=== PATIENT | female | born 1960 | race African-American/Black ===

== ENCOUNTER 2017-07-28 13:09 | Inpatient (IN) | payer OTHER ==
--- NOTE | 2017-07-28 13:27 | PDOC ---
History of Present Illness - General Chief Complaint: Pain Stated Complaint: Abd pain Time Seen by Provider: 07/28/17 13:27 - History of Present Illness Initial Comments: 07/28/17 13:46 Ms. Ramirez is a 56 yo female w/ pmh of HTN, cholelithiasis, and fibroids who presents for evaluation of a several hour history of LUQ pain with nausea (no vomiting). She reports this started at approximately 9am this morning and feels different from her normal gall bladder pain. She has passed gas and had a normal bowel movement since this started. The patient denies chest pain, shortness of breath, headache and dizziness. Denies fever, chills, vomit, diarrhea and constipation. Denies dysuria, frequency, urgency and hematuria. Allergies: NKDA Past History - Past Medical History Allergies/Adverse Reactions: Allergies Allergy/AdvReac Type Severity Reaction Status Date / Time No Known Allergies Allergy Verified 07/28/17 13:10 Home Medications: Ambulatory Orders NK [No Known Home Medication] 07/28/17 COPD: No DVT: No HTN: Yes - Suicide/Smoking/Psychosocial Hx Smoking Status: No Smoking History: Never smoked Have you smoked in the past 12 months: No Number of Cigarettes Smoked Daily: 0 Information on smoking cessation initiated: No Hx Alcohol Use: No Drug/Substance Use Hx: No Substance Use Type: None Review of Systems - Review of Systems Comments:: 07/28/17 14:12 GENERAL/CONSTITUTIONAL: No fever or chills. No weakness. HEAD, EYES, EARS, NOSE AND THROAT: No change in vision. No ear pain or discharge. No sore throat. CARDIOVASCULAR: No chest pain or shortness of breath RESPIRATORY: No cough, wheezing, or hemoptysis. GASTROINTESTINAL: Nausea without vomiting, diarrhea or constipation. GENITOURINARY: No dysuria, frequency, or change in urination. MUSCULOSKELETAL: No joint or muscle swelling or pain. No neck or back pain. SKIN: No rash NEUROLOGIC: No headache, vertigo, loss of consciousness, or change in strength/ sensation. ENDOCRINE: No increased thirst. No abnormal weight change HEMATOLOGIC/LYMPHATIC: No anemia, easy bleeding, or history of blood clots. ALLERGIC/IMMUNOLOGIC: No hives or skin allergy. *Physical Exam - Vital Signs Last Vital Signs Temp Pulse Resp BP Pulse Ox 98.3 F 96 H 18 150/87 100 07/28/17 13:11 07/28/17 13:11 07/28/17 13:11 07/28/17 13:11 07/28/17 13:11 - Physical Exam Comments: 07/28/17 14:14 GENERAL: Awake, alert, and fully oriented, in no acute distress HEAD: No signs of trauma, normocephalic, atraumatic EYES: PERRLA, EOMI, sclera anicteric, conjunctiva clear ENT: Auricles normal inspection, hearing grossly normal, nares patent, oropharynx clear without exudates. Moist mucosa NECK: Normal ROM, supple, no lymphadenopathy, JVD, or masses LUNGS: No distress, speaks full sentences, clear to auscultation bilaterally HEART: Regular rate and rhythm, normal S1 and S2, no murmurs, rubs or gallops, peripheral pulses normal and equal bilaterally. ABDOMEN: +LUQ TTP. Soft, normoactive bowel sounds. No guarding, no rebound. No masses EXTREMITIES: Normal inspection, Normal range of motion, no edema. No clubbing or cyanosis. NEUROLOGICAL: Cranial nerves II through XII grossly intact. Normal speech, normal gait, no focal sensorimotor deficits SKIN: Warm, Dry, normal turgor, no rashes or lesions noted. ED Treatment Course - LABORATORY CBC & Chemistry Diagram: 07/28/17 14:09 07/28/17 14:09 Medical Decision Making - Medical Decision Making 07/28/17 14:23 Ms. Ramirez is a 56 yo female w/ pmh as described who presents for evaluation of LUQ pain. XR ordered to r/o SBO, basic labs + lipase ordered for further evaluation. Fluids + pepcid + tylenol ordered for symptomatic relief. 07/28/17 17:47 CT abdomen negative for acute process however noted enlarged uterus, cholelithiasis, and colonic diverticulosis. Patient reporting some relief from symptoms. Labs significant for elevated white count as below. GI cocktail given for symptomatic relief. Patient dispo pending resolution of pain. 07/28/17 18:46 Patient continuing to have abdominal pain. US ordered for further evaluation. 07/28/17 18:48 Patient signed out to Dr. Ely for further evaluation. *DC/Admit/Observation/Transfer Diagnosis at time of Disposition: Diverticulitis - Discharge Dispostion Decision to Admit order: Yes - Referrals - Patient Instructions - Post Discharge Activity
[2017-07-28] MEDS ORDERED: SODIUM CHLORIDE 1,000 ML IV STA (13:50)
[2017-07-28] MEDS ORDERED: ONDANSETRON 4 MG/2 ML VIAL IVPUSH ONE (13:50)
[2017-07-28] MEDS ORDERED: FAMOTIDINE 20 MG/50 ML IVPB 20 MG/50 ML MG IVPB ONE ×4 (13:50→17:49)
[2017-07-28] MEDS ORDERED: ACETAMINOPHEN 1000 MG/100 ML VIAL (NON FORMULARY) IVPB ONE (13:50)
[2017-07-28] MEDS ORDERED: ACETAMINOPHEN INJECTION 100 ML IVPB ONE (13:56)
[2017-07-28] MEDS ORDERED: ONDANSETRON 4 MG/2 ML VIAL ONE (13:57)
--- NOTE | 2017-07-28 14:00 | PDOC ---
Attending Attestation - HPI HPI: 07/28/17 14:29 The patient is a 56-year-old female, with a significant past medical history of HTN, cholelithiasis, and fibroids, who presents to the ED with left-sided abdominal pain that began this morning at 10:30AM. She describes the pain as constant, pressure-like in sensation, 8/10 initially, with no radiation. She reports associated nausea but denies any vomiting. Patient states that her belly feels "hard" but she unable to pass any gas. She denies any hematuria or back pain. The patient denies any fever, chills, or diarrhea. She denies any chest pain, palpitations, or shortness of breath. - Physicial Exam PE: 07/28/17 14:33 GENERAL: The patient is in no acute distress. HEAD: Normal with no signs of trauma. EYES: PERRLA, EOMI, sclera anicteric, conjunctiva clear. ENT: Ears normal, nares patent, oropharynx clear without exudates. Moist mucous membranes. NECK: Normal range of motion, supple without lymphadenopathy, JVD, or masses. LUNGS: Breath sounds equal, clear to auscultation bilaterally. No wheezes, and no crackles. HEART:Regular rate and rhythm, normal S1 and S2 without murmur, rub or gallop. ABDOMEN: (+)Left-sided tenderness to palpation. Soft, normoactive bowel sounds. No guarding, no rebound. EXTREMITIES: Normal range of motion, no edema. No clubbing or cyanosis. No erythema, or tenderness. NEUROLOGICAL: Cranial nerves II through XII grossly intact. Normal speech. No focal neurological deficits. MUSCULOSKELETAL: Back non-tender to palpation, no CVA tenderness SKIN: Warm, Dry, normal turgor, no rashes or lesions noted. <Hailey Enriquez - Last Filed: 07/28/17 14:29> - Resident Resident Name: Clarence Yousif - ED Attending Attestation I have performed the following: I have examined & evaluated the patient, The case was reviewed & discussed with the resident, I agree w/resident's findings & plan, Exceptions are as noted - Medical Decision Making 07/28/17 14:48 EKG: Sinus rhythm, rate of 97 bpm, axis is normal, intervals are normal, no ST elevations or depressions, T waves upright This is a 56-year-old female who presents emergency Department with abdominal pain. Symptoms began suddenly the possibly 10 or 10:30 AM. Described as sharp/pressing, initially pain was 9-10/10, no prior episodes like this. Upon my assessment, patient had only "given Tylenol and states that her pain had improved but has not gone away. No abdominal distention, no fever, no chills. Patient had 2 bowel movements which did not improve her symptoms. Patient has not passed any flatus. Patient has a prior surgical history of a . Examination: Patient is awake, alert, answers all questions. Heart is regular Lungs are clear to auscultation Abdomen is large, protuberant, tender in the left upper quadrant, no involuntary guarding, no rebound. No lower abdominal tenderness to palpation Pt CT pending Consider US if CT negative Pt signed out to overnight attending <Roya Chen - Last Filed: 07/30/17 08:09> Attestations - Attestations 07/28/17 14:35 Documentation prepared by Hailey Enriquez, acting as biomedical repair technician for Roya Chen MD. <Hailey Enriquez - Last Filed: 07/28/17 14:29>
[2017-07-28 14:14] LABS: BASO % 0.5 % (0-2.0); EOS % 0.9 % (0-4.5); HEMATOCRIT 44.4 % (32.4-45.2); HEMOGLOBIN 14.7 GM/dL (10.7-15.3); MCH 30.3 pg (25.7-33.7); MCHC 33.1 g/dl (32.0-36.0); MEAN CELL VOLUME 91.5 fl (80-96); NEUT % 83.6 % (42.8-82.8); PLATELET COUNT 269 K/MM3 (134-434); RBC 4.86 M/mm3 (3.60-5.2); RDW 13.4 % (11.6-15.6); URINE APPEARANCE CLEAR; URINE BILIRUBIN NEGATIVE (<2.0 mg/dL); URINE BLOOD NEGATIVE (NEGATIVE); URINE COLOR STRAW; URINE GLUCOSE (UA) NEGATIVE (NEGATIVE); URINE KETONE NEGATIVE (NEGATIVE); URINE LEUK ESTERASE NEGATIVE (NEGATIVE); URINE NITRITE NEGATIVE (NEGATIVE); URINE PROTEIN NEGATIVE (NEGATIVE); URINE UROBILINOGEN NEGATIVE mg/dL (0.2-1.0); WHITE BLOOD COUNT 14.2 K/mm3 (4.0-10.0)
[2017-07-28 14:44] LABS: ALBUMIN 4.1 g/dl (3.4-5.0); ANION GAP 9 (8-16); BLOOD UREA NITROGEN 9 mg/dL (7-18); CALCIUM 9.1 mg/dL (8.5-10.1); CHLORIDE 104 mmol/L (98-107); CO2 25 mmol/L (21-32); CREATININE 0.8 mg/dL (0.55-1.02); GLUCOSE,RANDOM 142 mg/dL (74-106); LIPASE 110 U/L (73-393); POTASSIUM 3.9 mmol/L (3.5-5.1); SGOT/AST 26 U/L (15-37); SGPT/ALT 53 U/L (12-78); SODIUM 138 mmol/L (136-145)
[2017-07-28 14:45] LABS: ALK PHOS 90 U/L (45-117); TOT PROT 7.7 g/dl (6.4-8.2)
[2017-07-28] MEDS ORDERED: LIDOCAINE VISCOUS 2% ORAL/TOP 20 ML UNIT-DOSE CUP MM ONE (17:46)
[2017-07-28] MEDS ORDERED: MAG HYDROX/AL HYDROX/SIMETH 30 ML UNIT-DOSE CUP PO ONE (17:46)
[2017-07-28] MEDS ORDERED: LIDOCAINE VISCOUS 2% ORAL/TOP 20 ML UNIT-DOSE CUP ONE (17:48)
[2017-07-28] MEDS ORDERED: MAG HYDROX/AL HYDROX/SIMETH 30 ML UNIT-DOSE CUP ONE (17:49)
[2017-07-28] MEDS ORDERED: morphine CARPU-JECT 2 MG/1 ML DISP.SYRIN IVPUSH ONE (18:47)
[2017-07-28] MEDS ORDERED: morphine CARPU-JECT 2 MG/1 ML DISP.SYRIN ONE (18:52)
--- NOTE | 2017-07-28 21:06 | PDOC ---
History of Present Illness - General Chief Complaint: Pain Stated Complaint: Abd pain Time Seen by Provider: 07/28/17 13:27 Past History - Past Medical History Allergies/Adverse Reactions: Allergies Allergy/AdvReac Type Severity Reaction Status Date / Time No Known Allergies Allergy Verified 07/28/17 13:10 Home Medications: Ambulatory Orders NK [No Known Home Medication] 07/28/17 COPD: No DVT: No HTN: Yes - Suicide/Smoking/Psychosocial Hx Smoking Status: No Smoking History: Never smoked Have you smoked in the past 12 months: No Number of Cigarettes Smoked Daily: 0 Information on smoking cessation initiated: No Hx Alcohol Use: No Drug/Substance Use Hx: No Substance Use Type: None *Physical Exam - Vital Signs Last Vital Signs Temp Pulse Resp BP Pulse Ox 98.3 F 86 18 119/68 100 07/28/17 13:11 07/28/17 16:03 07/28/17 16:03 07/28/17 16:03 07/28/17 16:03 ED Treatment Course - LABORATORY CBC & Chemistry Diagram: 07/28/17 14:09 07/28/17 14:09 - ADDITIONAL ORDERS Additional order review: Laboratory Results 07/28/17 07/28/17 14:09 14:09 Sodium 138 Potassium 3.9 Chloride 104 Carbon Dioxide 25 Anion Gap 9 BUN 9 Creatinine 0.8 Creat Clearance w eGFR > 60 Random Glucose 142 H Calcium 9.1 Total Bilirubin 1.0 D AST 26 ALT 53 Alkaline Phosphatase 90 Total Protein 7.7 Albumin 4.1 Lipase 110 Urine Color Straw Urine Appearance Clear Urine pH 9.0 H D Ur Specific [place] 1.012 Urine Protein Negative Urine Glucose (UA) Negative Urine Ketones Negative Urine Blood Negative Urine Nitrite Negative Urine Bilirubin Negative Urine Urobilinogen Negative Ur Leukocyte Esterase Negative 07/28/17 14:09 RBC 4.86 MCV 91.5 MCHC 33.1 RDW 13.4 MPV 9.0 Neutrophils % 83.6 H D Lymphocytes % 8.0 D Monocytes % 7.0 D Eosinophils % 0.9 D Basophils % 0.5 - Medications Given in the ED: ED Medications Discontinued Medications Generic Name Dose Route Start Last Admin Trade Name Freq PRN Reason Stop Dose Admin Acetaminophen 1,000 mg 07/28/17 13:50 07/28/17 14:09 Ofirmev Injection - IVPB 07/28/17 13:51 1,000 mg ONCE ONE Administration Al Hydroxide/Mg Hydroxide 30 ml 07/28/17 17:46 07/28/17 17:59 Mylanta Oral Suspension - PO 07/28/17 17:47 30 ml ONCE ONE Administration Famotidine/Sodium Chloride 20 mg in 50 mls @ 100 mls/hr 07/28/17 13:50 14:03 Pepcid 20 Mg Premixed Ivpb - IVPB 07/28/17 14:19 100 mls/hr ONCE ONE Administration Sodium Chloride 1,000 mls @ 1,000 mls/hr 07/28/17 13:50 07/28/17 14:03 Normal Saline - IV 07/28/17 14:49 1,000 mls/hr ASDIR STA Administration Famotidine/Sodium Chloride 20 mg in 50 mls @ 100 mls/hr 07/28/17 17:46 17:58 Pepcid 20 Mg Premixed Ivpb - IVPB 07/28/17 18:15 100 mls/hr ONCE ONE Administration Lidocaine HCl 20 ml 07/28/17 17:46 07/28/17 17:58 Xylocaine 2% Viscous Oral - MM 07/28/17 17:47 20 ml ONCE ONE Administration Morphine Sulfate 2 mg 07/28/17 18:47 07/28/17 19:00 Morphine Injection - IVPUSH 07/28/17 18:48 2 mg ONCE ONE Administration Ondansetron HCl 4 mg 07/28/17 13:50 07/28/17 14:03 Zofran Injection IVPUSH 07/28/17 13:51 4 mg ONCE ONE Administration *DC/Admit/Observation/Transfer Diagnosis at time of Disposition: Diverticulitis - Discharge Dispostion Decision to Admit order: Yes - Referrals - Patient Instructions - Post Discharge Activity
[2017-07-28] MEDS ORDERED: morphine SULFATE 4 MG/ML VIAL IVPUSH PRN (21:39)
--- NOTE | 2017-07-28 21:44 | HP ---
Admitting History and Physical - Primary Care Physician PCP: Kiel Cohen - Admission Chief Complaint: abdominal pain History of Present Illness: 56-year-old female, with a significant past medical history of HTN, cholelithiasis, and fibroids, who presents to the ED with left-sided abdominal pain that began this morning at 10:30AM. She describes the pain as constant, pressure-like in sensation, 8/10 initially, with no radiation. She reports associated nausea but denies any vomiting. Patient states that her belly feels "hard" but she unable to pass any gas. She denies any hematuria or back pain. - Past Medical History Cardiovascular: Yes: HTN, Hyperlipdemia - Smoking History Smoking history: Never smoked Have you smoked in the past 12 months: No Aproximately how many cigarettes per day: 0 - Alcohol/Substance Use Hx Alcohol Use: No Home Medications - Allergies Allergies/Adverse Reactions: Allergies Allergy/AdvReac Type Severity Reaction Status Date / Time No Known Allergies Allergy Verified 07/28/17 13:10 - Home Medications Home Medications: Ambulatory Orders NK [No Known Home Medication] 07/28/17 Physical Examination Vital Signs: Vital Signs Temperature 99.2 F 07/28/17 21:06 Pulse Rate 88 07/28/17 21:06 Respiratory Rate 17 07/28/17 21:06 Blood Pressure 119/65 07/28/17 21:06 O2 Sat by Pulse Oximetry (%) 98 07/28/17 21:06 Constitutional: Yes: No Distress HENT: Yes: Atraumatic Neck: Yes: Supple Cardiovascular: Yes: Regular Rate and Rhythm Respiratory: Yes: CTA Bilaterally Gastrointestinal: Yes: Normal Bowel Sounds, Tenderness (luq) Extremities: Yes: WNL Neurological: Yes: Alert, Oriented Labs: CBC, BMP 07/28/17 14:09 07/28/17 14:09 Problem List - Problems (1) Diverticulitis Assessment/Plan: npo ivf, iv abx gi and id consult Code(s): K57.92 - DVTRCLI OF INTEST, PART UNSP, W/O PERF OR ABSCESS W/O BLEED Assessment/Plan Laboratory Tests 07/28/17 07/28/17 07/28/17 14:09 14:09 14:09 WBC 14.2 H RBC 4.86 Hgb 14.7 Hct 44.4 MCV 91.5 MCH 30.3 MCHC 33.1 RDW 13.4 Plt Count 269 MPV 9.0 Absolute Neuts (auto) 11.9 Neutrophils % 83.6 H D Lymphocytes % 8.0 D Monocytes % 7.0 D Eosinophils % 0.9 D Basophils % 0.5 Nucleated RBC % 0 Sodium 138 Potassium 3.9 Chloride 104 Carbon Dioxide 25 Anion Gap 9 BUN 9 Creatinine 0.8 Creat Clearance w eGFR > 60 Random Glucose 142 H Calcium 9.1 Total Bilirubin 1.0 D AST 26 ALT 53 Alkaline Phosphatase 90 Total Protein 7.7 Albumin 4.1 Lipase 110 Urine Color Straw Urine Appearance Clear Urine pH 9.0 H D Ur Specific [place] 1.012 Urine Protein Negative Urine Glucose (UA) Negative Urine Ketones Negative Urine Blood Negative Urine Nitrite Negative Urine Bilirubin Negative Urine Urobilinogen Negative Ur Leukocyte Esterase Negative Active Medications Generic Name Dose Route Start Last Admin Trade Name Freq PRN Reason Stop Dose Admin Metronidazole 500 mg in 100 mls @ 100 mls/hr 07/28/17 20:59 07/28/17 21:06 Flagyl 500mg Premixed Ivpb - IVPB 07/28/17 21:58 100 mls/hr ONCE ONE Administration Levofloxacin 500 mg in 100 mls @ 100 mls/hr 07/28/17 20:59 Levaquin 500 Mg Premixed Ivpb - IVPB 07/28/17 21:58 ONCE ONE Protocol Metronidazole 500 mg in 100 mls @ 100 mls/hr 07/29/17 02:00 Flagyl 500mg Premixed Ivpb - IVPB Q8H-IV MAGDALENO Levofloxacin 500 mg in 100 mls @ 100 mls/hr 07/29/17 10:00 Levaquin 500 Mg Premixed Ivpb - IVPB 08/03/17 09:59 DAILY MAGDALENO Protocol Sodium Chloride 1,000 mls @ 100 mls/hr 07/28/17 21:45 Normal Saline - IV ASDIR MAGDALENO Morphine Sulfate 2 mg 07/28/17 21:39 Morphine Sulfate IVPUSH Q4H PRN PAIN LEVEL 4 - 6 Pantoprazole Sodium 40 mg 07/29/17 10:00 Protonix Iv IVPUSH DAILY MAGDALENO
[2017-07-28] MEDS: SODIUM CHLORIDE 1,000 ML IV SCH (21:57)
[2017-07-29 01:14] VITALS: BMI 41.2
[2017-07-29] MEDS: SODIUM CHLORIDE 1,000 ML IV SCH ×2 (01:34→10:47)
[2017-07-29 07:42] LABS: BASO % 0.6 % (0-2.0); EOS % 0.5 % (0-4.5); HEMATOCRIT 38.6 % (32.4-45.2); LYMPH % 13.5 % (8-40); MCH 31.1 pg (25.7-33.7); MCHC 33.6 g/dl (32.0-36.0); MEAN CELL VOLUME 92.6 fl (80-96); MEAN PLT VOLUME 8.7 fl (7.5-11.1); MONO % 6.9 % (3.8-10.2); NEUT % 78.5 % (42.8-82.8); PLATELET COUNT 226 K/MM3 (134-434); RBC 4.16 M/mm3 (3.60-5.2); RDW 13.3 % (11.6-15.6); WHITE BLOOD COUNT 11.3 K/mm3 (4.0-10.0)
[2017-07-29 08:07] LABS: CHLORIDE 107 mmol/L (98-107); POTASSIUM 3.7 mmol/L (3.5-5.1); SODIUM 142 mmol/L (136-145)
[2017-07-29 08:14] LABS: ALBUMIN 3.3 g/dl (3.4-5.0); ALK PHOS 68 U/L (45-117); ANION GAP 9 (8-16); BILIRUBIN,TOTAL 1.2 mg/dL (0.2-1.0); BLOOD UREA NITROGEN 9 mg/dL (7-18); CALCIUM 8.4 mg/dL (8.5-10.1); CO2 26 mmol/L (21-32); CREATININE 0.8 mg/dL (0.55-1.02); GLUCOSE,RANDOM 104 mg/dL (74-106); SGOT/AST 19 U/L (15-37); SGPT/ALT 40 U/L (12-78); TOT PROT 6.3 g/dl (6.4-8.2)
[2017-07-29] MEDS: PANTOPRAZOLE SODIUM 40 MG VIAL IVPUSH SCH (09:28)
--- NOTE | 2017-07-29 12:14 | CON.GI ---
Consult Consult Specialty:: GI Reason for Consultation:: abdominal pain of 1 day duration - History of Present Illness History of Present Illness: chart reviewed. Events noted. As per initial intake: The patient is a 56-year -old female, with a significant past medical history of HTN, cholelithiasis, and fibroids, who presents to the ED with left-sided abdominal pain that began this morning at 10:30AM. She describes the pain as constant, pressure-like in sensation, 8/10 initially, with no radiation. She reports associated nausea but denies any vomiting. Patient states that her belly feels "hard" but she unable to pass any gas. She denies any hematuria or back pain. She was noted to have mild leukocytosis, normal liver chemistry and hemoglobin on admission. Minimal increase in total bili on today's labs. Ultrasound of the abdomen revealed cholelithiasis without signs of inflammation. CAT scan of the abdomen revealed diverticulosis, cholelithiasis and fatty liver. At the time of this encounter, the patient appears comfortable. Reports left lower quadrant pain that brought her to the ED has resolved. She corroborates the above history All for acute onset left lower quadrant abdominal pain with chills and nausea without vomiting, diarrhea, skin rashes, joint pains. No prior episodes of the same. No ill household contacts, eating out, recent travel. Took short course of antibiotics 2 months ago. Never had screening colonoscopy. - History Source History Provided By: Patient, Medical Record - Past Medical History Cardio/Vascular: Yes: HTN, Hyperlipdemia ...: No - Alcohol/Substance Use Hx Alcohol Use: No - Smoking History Smoking history: Never smoked Have you smoked in the past 12 months: No Aproximately how many cigarettes per day: 0 Home Medications - Allergies Allergies/Adverse Reactions: Allergies Allergy/AdvReac Type Severity Reaction Status Date / Time No Known Allergies Allergy Verified 07/28/17 13:10 - Home Medications Home Medications: Ambulatory Orders NK [No Known Home Medication] 07/28/17 Family Disease History - Family Disease History Family History: Unremarkable Review of Systems Findings/Remarks: As per H&P, HPI and ED records. Physical Exam-GI Vital Signs: Vital Signs Temperature 98.2 F 07/29/17 09:40 Pulse Rate 76 07/29/17 09:40 Respiratory Rate 20 07/29/17 09:40 Blood Pressure 116/62 07/29/17 09:40 O2 Sat by Pulse Oximetry (%) 95 07/29/17 09:00 Constitutional: Yes: Well Nourished, No Distress, Calm Eyes: Yes: Conjunctiva Clear HENT: Yes: Atraumatic Neck: Yes: Supple Cardiovascular: Yes: Regular Rate and Rhythm Respiratory: Yes: Regular Gastrointestinal Inspection: No: Ascites, Distention ...Auscultate: Yes: Normoactive Bowel Sounds ...Palpate: No: Firm/Rigid, Guarding, Tenderness, Rebound Neurological: Yes: Alert, Oriented Labs: CBC, BMP 07/29/17 06:00 07/29/17 06:00 Laboratory Last Values WBC 11.3 K/mm3 (4.0-10.0) H 07/29/17 06:00 RBC 4.16 M/mm3 (3.60-5.2) 07/29/17 06:00 Hgb 13.0 GM/dL (10.7-15.3) D 07/29/17 06:00 Hct 38.6 % (32.4-45.2) 07/29/17 06:00 MCV 92.6 fl (80-96) 07/29/17 06:00 MCH 31.1 pg (25.7-33.7) 07/29/17 06:00 MCHC 33.6 g/dl (32.0-36.0) 07/29/17 06:00 RDW 13.3 % (11.6-15.6) 07/29/17 06:00 Plt Count 226 K/MM3 (134-434) 07/29/17 06:00 MPV 8.7 fl (7.5-11.1) 07/29/17 06:00 Absolute Neuts (auto) 8.9 # 07/29/17 06:00 Neutrophils % 78.5 % (42.8-82.8) 07/29/17 06:00 Lymphocytes % 13.5 % (8-40) D 07/29/17 06:00 Monocytes % 6.9 % (3.8-10.2) 07/29/17 06:00 Eosinophils % 0.5 % (0-4.5) 07/29/17 06:00 Basophils % 0.6 % (0-2.0) 07/29/17 06:00 Nucleated RBC % 0 % (0-0) 07/29/17 06:00 Sodium 142 mmol/L (136-145) 07/29/17 06:00 Potassium 3.7 mmol/L (3.5-5.1) 07/29/17 06:00 Chloride 107 mmol/L (98-107) 07/29/17 06:00 Carbon Dioxide 26 mmol/L (21-32) 07/29/17 06:00 Anion Gap 9 (8-16) 07/29/17 06:00 BUN 9 mg/dL (7-18) 07/29/17 06:00 Creatinine 0.8 mg/dL (0.55-1.02) 07/29/17 06:00 Creat Clearance w eGFR > 60 (>60) 07/29/17 06:00 Random Glucose 104 mg/dL (74-106) 07/29/17 06:00 Calcium 8.4 mg/dL (8.5-10.1) L 07/29/17 06:00 Total Bilirubin 1.2 mg/dL (0.2-1.0) H 07/29/17 06:00 AST 19 U/L (15-37) 07/29/17 06:00 ALT 40 U/L (12-78) 07/29/17 06:00 Alkaline Phosphatase 68 U/L (45-117) 07/29/17 06:00 Total Protein 6.3 g/dl (6.4-8.2) L 07/29/17 06:00 Albumin 3.3 g/dl (3.4-5.0) L 07/29/17 06:00 Lipase 110 U/L (73-393) 07/28/17 14:09 Urine Color Straw 07/28/17 14:09 Urine Appearance Clear 07/28/17 14:09 Urine pH 9.0 (5.0-8.0) H D 07/28/17 14:09 Ur Specific [place] 1.012 (1.001-1.035) 07/28/17 14:09 Urine Protein Negative (NEGATIVE) 07/28/17 14:09 Urine Glucose (UA) Negative (NEGATIVE) 07/28/17 14:09 Urine Ketones Negative (NEGATIVE) 07/28/17 14:09 Urine Blood Negative (NEGATIVE) 07/28/17 14:09 Urine Nitrite Negative (NEGATIVE) 07/28/17 14:09 Urine Bilirubin Negative (<2.0 mg/dL) 07/28/17 14:09 Urine Urobilinogen Negative mg/dL (0.2-1.0) 07/28/17 14:09 Ur Leukocyte Esterase Negative (NEGATIVE) 07/28/17 14:09 Imaging - Results X-ray: Report Reviewed Cat Scan: Report Reviewed Ultrasound: Report Reviewed Problem List - Problems (1) Intermittent left lower quadrant abdominal pain Code(s): R10.32 - LEFT LOWER QUADRANT PAIN (2) Diverticulitis Code(s): K57.92 - DVTRCLI OF INTEST, PART UNSP, W/O PERF OR ABSCESS W/O BLEED Assessment/Plan A 56-year-old female with history of hypertension presents with acute onset left lower quadrant abdominal pain, leukocytosis and diverticulosis. Suspect mild diverticulitis. Pancreaticobiliary etiology is on differential list. Agree with antibiotics, low residual diet and adequate po/IV hydration. Observe for 1-2 days, Repeat liver chemistry and CBC tomorrow. Colonoscopy in 6 -8 weeks. Discussed with the patient.
--- NOTE | 2017-07-29 15:30 | CON.ID ---
Consult Consult Specialty:: infectious diseases Reason for Consultation:: leukocytosis,left lower quadrant pain,diverticulosis - History of Present Illness Chief Complaint: left lower quadrant pain History of Present Illness: this patient who is obese coming to the hospital with sudden onset of left lower quadrant pain 56-year-old female, with a significant past medical history of HTN, cholelithiasis, and fibroids, who presents to the ED with left-sided abdominal pain that began this morning at 10:30AM. She describes the pain as constant, pressure-like in sensation, 8/10 initially, with no radiation. She reports associated nausea but denies any vomiting. Patient states that her belly feels "hard" but she unable to pass any gas. She denies any hematuria or back pain. patient was admitted and worked up and ct scan was done which did not reveal any specific finding currently patient is stable and the abd pain is much better no other issues - History Source History Provided By: Patient Limitations to Obtaining History: No Limitations - Past Medical History Cardio/Vascular: Yes: HTN, Hyperlipdemia ...: No - Alcohol/Substance Use Hx Alcohol Use: No - Smoking History Smoking history: Never smoked Have you smoked in the past 12 months: No Aproximately how many cigarettes per day: 0 Home Medications - Allergies Allergies/Adverse Reactions: Allergies Allergy/AdvReac Type Severity Reaction Status Date / Time No Known Allergies Allergy Verified 07/28/17 13:10 - Home Medications Home Medications: Ambulatory Orders NK [No Known Home Medication] 07/28/17 Review of Systems - Review of Systems Constitutional: reports: No Symptoms Eyes: reports: No Symptoms HENT: reports: No Symptoms Neck: reports: No Symptoms Cardiovascular: reports: No Symptoms Respiratory: reports: No Symptoms Gastrointestinal: reports: Abdominal Pain Genitourinary: reports: No Symptoms Musculoskeletal: reports: No Symptoms Integumentary: reports: No Symptoms Neurological: reports: No Symptoms Endocrine: reports: No Symptoms Hematology/Lymphatic: reports: No Symptoms Psychiatric: reports: No Symptoms Physical Exam Vital Signs: Vital Signs Temperature 98.0 F 07/29/17 15:01 Pulse Rate 66 07/29/17 15:01 Respiratory Rate 20 07/29/17 15:01 Blood Pressure 120/70 07/29/17 15:01 O2 Sat by Pulse Oximetry (%) 95 07/29/17 09:00 Constitutional: Yes: Well Nourished, Mild Distress, Obese Eyes: Yes: Conjunctiva Clear Cardiovascular: Yes: Regular Rate and Rhythm Respiratory: Yes: Regular, CTA Bilaterally Gastrointestinal: Yes: Normal Bowel Sounds, Soft. No: Tenderness Musculoskeletal: Yes: WNL Extremities: Yes: WNL Neurological: Yes: Alert, Oriented Psychiatric: Yes: Alert, Oriented Labs: CBC, BMP 07/29/17 06:00 07/29/17 06:00 Imaging - Results Cat Scan: Report Reviewed, Image Reviewed Ultrasound: Report Reviewed, Image Reviewed Assessment/Plan patient improving wbc decreasing Problem List - Problems (1) Intermittent left lower quadrant abdominal pain Code(s): R10.32 - LEFT LOWER QUADRANT PAIN (2) Diverticulitis Code(s): K57.92 - DVTRCLI OF INTEST, PART UNSP, W/O PERF OR ABSCESS W/O BLEED gi noted noted plan agree with the gi plan continue abx if wbc normal tomorrow will switch to oral abx rest continue current mgmt
--- NOTE | 2017-07-29 17:22 | PN ---
Progress Note, Physician - Current Medication List Current Medications: Active Medications Metronidazole (Flagyl 500mg Premixed Ivpb -) 500 mg in 100 mls @ 100 mls/hr IVPB Q8H-IV MAGDALENO Last Admin: 07/29/17 09:28 Dose: 100 mls/hr Levofloxacin (Levaquin 500 Mg Premixed Ivpb -) 500 mg in 100 mls @ 100 mls/hr IVPB DAILY MAGDALENO; Protocol Stop: 08/03/17 09:59 Last Admin: 07/29/17 10:48 Dose: 100 mls/hr Sodium Chloride (Normal Saline -) 1,000 mls @ 100 mls/hr IV ASDIR MAGDALENO Last Admin: 07/29/17 10:47 Dose: 100 mls/hr Morphine Sulfate (Morphine Sulfate) 2 mg IVPUSH Q4H PRN PRN Reason: PAIN LEVEL 4 - 6 Pantoprazole Sodium (Protonix Iv) 40 mg IVPUSH DAILY MAGDALENO Last Admin: 07/29/17 09:28 Dose: 40 mg - Objective Vital Signs: Vital Signs Temperature 98.0 F 07/29/17 15:01 Pulse Rate 66 07/29/17 15:01 Respiratory Rate 20 07/29/17 15:01 Blood Pressure 120/70 07/29/17 15:01 O2 Sat by Pulse Oximetry (%) 95 07/29/17 09:00 Constitutional: Yes: No Distress HENT: Yes: Atraumatic Neck: Yes: Supple Cardiovascular: Yes: Regular Rate and Rhythm Respiratory: Yes: CTA Bilaterally Gastrointestinal: Yes: Normal Bowel Sounds Extremities: Yes: WNL Neurological: Yes: Alert, Oriented Labs: CBC, BMP 07/29/17 06:00 07/29/17 06:00 Problem List - Problems (1) Diverticulitis Assessment/Plan: on diet per gi ivf, iv abx gi and id consult Code(s): K57.92 - DVTRCLI OF INTEST, PART UNSP, W/O PERF OR ABSCESS W/O BLEED
[2017-07-30] MEDS: SODIUM CHLORIDE 1,000 ML IV SCH (02:02)
[2017-07-30] MEDS: PANTOPRAZOLE SODIUM 40 MG VIAL IVPUSH SCH (09:33)
[2017-07-30 10:09] LABS: BASO % 1.1 % (0-2.0); HEMATOCRIT 39.7 % (32.4-45.2); HEMOGLOBIN 13.3 GM/dL (10.7-15.3); LYMPH % 32.1 % (8-40); MCH 30.9 pg (25.7-33.7); MCHC 33.5 g/dl (32.0-36.0); MEAN CELL VOLUME 92.2 fl (80-96); MEAN PLT VOLUME 8.4 fl (7.5-11.1); MONO % 7.5 % (3.8-10.2); NEUT % 47.3 % (42.8-82.8); PLATELET COUNT 213 K/MM3 (134-434); RBC 4.31 M/mm3 (3.60-5.2); RDW 13.5 % (11.6-15.6)
[2017-07-30 10:30] LABS: ANION GAP 7 (8-16); BLOOD UREA NITROGEN 8 mg/dL (7-18); CALCIUM 8.7 mg/dL (8.5-10.1); CHLORIDE 108 mmol/L (98-107); CO2 26 mmol/L (21-32); CREATININE 0.8 mg/dL (0.55-1.02); GLUCOSE,RANDOM 193 mg/dL (74-106); POTASSIUM 3.6 mmol/L (3.5-5.1); SODIUM 141 mmol/L (136-145)
--- NOTE | 2017-07-30 13:01 | PN ---
Progress Note, Physician History of Present Illness: doing well no issues abd pain much better wbc has normalized - Current Medication List Current Medications: Active Medications Metronidazole (Flagyl 500mg Premixed Ivpb -) 500 mg in 100 mls @ 100 mls/hr IVPB Q8H-IV MAGDALENO Last Admin: 07/30/17 09:33 Dose: 100 mls/hr Levofloxacin (Levaquin 500 Mg Premixed Ivpb -) 500 mg in 100 mls @ 100 mls/hr IVPB DAILY MAGDALENO; Protocol Stop: 08/03/17 09:59 Last Admin: 07/30/17 10:37 Dose: 100 mls/hr Sodium Chloride (Normal Saline -) 1,000 mls @ 100 mls/hr IV ASDIR MAGDALENO Last Admin: 07/30/17 02:02 Dose: 100 mls/hr Morphine Sulfate (Morphine Sulfate) 2 mg IVPUSH Q4H PRN PRN Reason: PAIN LEVEL 4 - 6 Pantoprazole Sodium (Protonix Iv) 40 mg IVPUSH DAILY MAGDALENO Last Admin: 07/30/17 09:33 Dose: 40 mg - Objective Vital Signs: Vital Signs Temperature 98.2 F 07/30/17 09:00 Pulse Rate 70 07/30/17 09:00 Respiratory Rate 20 07/30/17 09:00 Blood Pressure 137/79 07/30/17 09:00 O2 Sat by Pulse Oximetry (%) 97 07/30/17 09:00 Constitutional: Yes: No Distress, Calm, Obese Cardiovascular: Yes: Regular Rate and Rhythm Respiratory: Yes: Regular, CTA Bilaterally Gastrointestinal: Yes: Normal Bowel Sounds, Soft Musculoskeletal: Yes: WNL Extremities: Yes: WNL Neurological: Yes: Alert, Oriented Psychiatric: Yes: Alert, Oriented Labs: CBC, BMP 07/30/17 09:40 07/30/17 09:40 Assessment/Plan patient improving wbc decreasing Problem List - Problems (1) Intermittent left lower quadrant abdominal pain Code(s): R10.32 - LEFT LOWER QUADRANT PAIN (2) Diverticulitis Code(s): K57.92 - DVTRCLI OF INTEST, PART UNSP, W/O PERF OR ABSCESS W/O BLEED gi noted noted plan agree with the gi plan continue abx if wbc normal tomorrow will switch to oral abx rest continue current mgmt
[2017-07-30 13:27] VITALS: PULSE 65
--- NOTE | 2017-07-30 13:47 | PN ---
Progress Note, Physician History of Present Illness: Much improved. Asymptomatic. Normal bowel movements. - Current Medication List Current Medications: Active Medications Metronidazole (Flagyl 500mg Premixed Ivpb -) 500 mg in 100 mls @ 100 mls/hr IVPB Q8H-IV MAGDALENO Last Admin: 07/30/17 09:33 Dose: 100 mls/hr Levofloxacin (Levaquin 500 Mg Premixed Ivpb -) 500 mg in 100 mls @ 100 mls/hr IVPB DAILY MAGDALENO; Protocol Stop: 08/03/17 09:59 Last Admin: 07/30/17 10:37 Dose: 100 mls/hr Sodium Chloride (Normal Saline -) 1,000 mls @ 100 mls/hr IV ASDIR MAGDALENO Last Admin: 07/30/17 02:02 Dose: 100 mls/hr Morphine Sulfate (Morphine Sulfate) 2 mg IVPUSH Q4H PRN PRN Reason: PAIN LEVEL 4 - 6 Pantoprazole Sodium (Protonix Iv) 40 mg IVPUSH DAILY MAGDALENO Last Admin: 07/30/17 09:33 Dose: 40 mg - Objective Vital Signs: Vital Signs Temperature 98.0 F 07/30/17 13:25 Pulse Rate 65 07/30/17 13:25 Respiratory Rate 18 07/30/17 13:25 Blood Pressure 129/72 07/30/17 13:25 O2 Sat by Pulse Oximetry (%) 97 07/30/17 09:00 Constitutional: Yes: Well Nourished, No Distress, Calm Eyes: Yes: Conjunctiva Clear HENT: Yes: Atraumatic Gastrointestinal: Yes: Normal Bowel Sounds, Soft. No: Melena, Rectal Bleeding, Tenderness, Tenderness, Rebound, Vomiting Neurological: Yes: Alert, Oriented Labs: CBC, BMP 07/30/17 09:40 07/30/17 09:40 Laboratory Last Values WBC 6.0 K/mm3 (4.0-10.0) D 07/30/17 09:40 RBC 4.31 M/mm3 (3.60-5.2) 07/30/17 09:40 Hgb 13.3 GM/dL (10.7-15.3) 07/30/17 09:40 Hct 39.7 % (32.4-45.2) 07/30/17 09:40 MCV 92.2 fl (80-96) 07/30/17 09:40 MCH 30.9 pg (25.7-33.7) 07/30/17 09:40 MCHC 33.5 g/dl (32.0-36.0) 07/30/17 09:40 RDW 13.5 % (11.6-15.6) 07/30/17 09:40 Plt Count 213 K/MM3 (134-434) 07/30/17 09:40 MPV 8.4 fl (7.5-11.1) 07/30/17 09:40 Absolute Neuts (auto) 2.8 # 07/30/17 09:40 Neutrophils % 47.3 % (42.8-82.8) D 07/30/17 09:40 Lymphocytes % 32.1 % (8-40) D 07/30/17 09:40 Monocytes % 7.5 % (3.8-10.2) 07/30/17 09:40 Eosinophils % 12.0 % (0-4.5) H D 07/30/17 09:40 Basophils % 1.1 % (0-2.0) 07/30/17 09:40 Nucleated RBC % 0 % (0-0) 07/30/17 09:40 Sodium 141 mmol/L (136-145) 07/30/17 09:40 Potassium 3.6 mmol/L (3.5-5.1) 07/30/17 09:40 Chloride 108 mmol/L (98-107) H 07/30/17 09:40 Carbon Dioxide 26 mmol/L (21-32) 07/30/17 09:40 Anion Gap 7 (8-16) L 07/30/17 09:40 BUN 8 mg/dL (7-18) 07/30/17 09:40 Creatinine 0.8 mg/dL (0.55-1.02) 07/30/17 09:40 Creat Clearance w eGFR > 60 (>60) 07/29/17 06:00 Random Glucose 193 mg/dL (74-106) H 07/30/17 09:40 Calcium 8.7 mg/dL (8.5-10.1) 07/30/17 09:40 Total Bilirubin 1.2 mg/dL (0.2-1.0) H 07/29/17 06:00 AST 19 U/L (15-37) 07/29/17 06:00 ALT 40 U/L (12-78) 07/29/17 06:00 Alkaline Phosphatase 68 U/L (45-117) 07/29/17 06:00 Total Protein 6.3 g/dl (6.4-8.2) L 07/29/17 06:00 Albumin 3.3 g/dl (3.4-5.0) L 07/29/17 06:00 Lipase 110 U/L (73-393) 07/28/17 14:09 Urine Color Straw 07/28/17 14:09 Urine Appearance Clear 07/28/17 14:09 Urine pH 9.0 (5.0-8.0) H D 07/28/17 14:09 Ur Specific [place] 1.012 (1.001-1.035) 07/28/17 14:09 Urine Protein Negative (NEGATIVE) 07/28/17 14:09 Urine Glucose (UA) Negative (NEGATIVE) 07/28/17 14:09 Urine Ketones Negative (NEGATIVE) 07/28/17 14:09 Urine Blood Negative (NEGATIVE) 07/28/17 14:09 Urine Nitrite Negative (NEGATIVE) 07/28/17 14:09 Urine Bilirubin Negative (<2.0 mg/dL) 07/28/17 14:09 Urine Urobilinogen Negative mg/dL (0.2-1.0) 07/28/17 14:09 Ur Leukocyte Esterase Negative (NEGATIVE) 07/28/17 14:09 Problem List - Problems (1) Intermittent left lower quadrant abdominal pain Code(s): R10.32 - LEFT LOWER QUADRANT PAIN (2) Diverticulitis Code(s): K57.92 - DVTRCLI OF INTEST, PART UNSP, W/O PERF OR ABSCESS W/O BLEED Assessment/Plan Good response to current therapy. Antibiotics as per ID. Low residual diet for now. High-fiber diet in 1 week. Follow up with GI as outpatient in 1 to 2 weeks, or sooner if need be. Screening/surveillance colonoscopy in 6-8 weeks.
--- NOTE | 2017-07-30 14:55 | DS ---
Physical Examination Vital Signs: Vital Signs Temperature 98.0 F 07/30/17 13:25 Pulse Rate 65 07/30/17 13:25 Respiratory Rate 18 07/30/17 13:25 Blood Pressure 129/72 07/30/17 13:25 O2 Sat by Pulse Oximetry (%) 97 07/30/17 09:00 Constitutional: Yes: No Distress HENT: Yes: Atraumatic Neck: Yes: Supple Cardiovascular: Yes: Regular Rate and Rhythm Respiratory: Yes: CTA Bilaterally Gastrointestinal: Yes: Normal Bowel Sounds Extremities: Yes: WNL Neurological: Yes: Alert, Oriented Labs: CBC, BMP 07/30/17 09:40 07/30/17 09:40 Discharge Summary Reason For Visit: DIVERTICULITIS Current Active Problems Diverticulitis (Acute) Intermittent left lower quadrant abdominal pain (Acute) - Instructions Diet, Activity, Other Instructions: low residue diet now then high fiber diet after 1 week Referrals: Kiel Cohen MD [Staff Physician] - - Home Medications Comprehensive Discharge Medication List: Ambulatory Orders levoFLOXacin [Levaquin -] 500 mg PO DAILY #7 tablet 07/29/17 metroNIDAZOLE [Flagyl -] 500 mg PO TID #21 tablet 07/29/17 dc home pt tolerating diet dc instructions given
[2017-07-30 17:30] VITALS: BP 125/62; TEMP 98.3
--- NOTE | 2017-08-02 08:50 | EKG ---
Test Reason : Blood Pressure : / mmHG Vent. Rate : 097 BPM Atrial Rate : 097 BPM P-R Int : 152 ms QRS Dur : 080 ms QT Int : 368 ms P-R-T Axes : 055 -05 062 degrees QTc Int : 467 ms NORMAL SINUS RHYTHM BIATRIAL ENLARGEMENT LEFT VENTRICULAR HYPERTROPHY ABNORMAL ECG NO PREVIOUS ECGS AVAILABLE Confirmed by KAMRON PONCE MD ([id number]) on 08/02/2017 8:50:28 AM Referred By: Confirmed By:KAMRON PONCE MD
== END 2017-07-30 20:33 | disposition home or self-care (01) | DRG 244 ==
LOC: JER 13:09 → JERBED 21:05 → J7W 07-29 00:27
PROVIDERS: ADMIT Internal Medicine; ATTEND Internal Medicine
DX: K57.92 Diverticulitis of intestine, part unspecified, without perforation or abscess without bleeding (principal); I10 Essential (primary) hypertension; D25.9 Leiomyoma of uterus, unspecified; K80.20 Calculus of gallbladder without cholecystitis without obstruction; K57.90 Diverticulosis of intestine, part unspecified, without perforation or abscess without bleeding; E78.5 Hyperlipidemia, unspecified; R10.32 Left lower quadrant pain; D72.829 Elevated white blood cell count, unspecified
CPT/HCPCS: 36415; 74019-TC-FY; 74177-TC; 76700-TC; 80048; 80053; 81003; 83690; 85025; 87086; 93005; 93010; 99283-25; J0131; J7030

== ENCOUNTER 2017-09-23 08:05 | Day surgery (SDC) | payer OTHER ==
[2017-09-22 13:15] VITALS: BMI 39.6
[2017-09-23] MEDS ORDERED: PROPOFOL 20 ML ONE ×5 (09:18)
[2017-09-23] MEDS ORDERED: LIDOCAINE HCL/PF 2% SDV 5ML VIAL ONE (09:19)
--- NOTE | 2017-09-23 09:24 | PROC ---
Endoscopy Procedure Endoscopy procedure completed. Please see scanned procedure report.
[2017-09-23 09:26] VITALS: TEMP 7.5
[2017-09-23 11:28] VITALS: BP 138/78; PULSE 65
== END 2017-09-23 11:28 | disposition home or self-care (01) ==
LOC: JASU-ENDO 08:05
PROVIDERS: ATTEND Internal Medicine Gastroenterology
PROC: 0DJD8ZZ Inspection of Lower Intestinal Tract, Via Natural or Artificial Opening Endoscopic (ICD-10-PCS; principal; 2017-09-23 08:45)
DX: K52.9 Noninfective gastroenteritis and colitis, unspecified (principal); K64.8 Other hemorrhoids

== ENCOUNTER 2018-10-04 17:05 | Emergency (ER) | payer OTHER | END 2018-10-05 01:39 | disposition home or self-care (01) | LOC: JER 10-05 01:39 ==

== ENCOUNTER 2023-02-05 20:01 | Emergency (ER) | payer OTHER ==
[2023-02-05 20:09] VITALS: TEMP 98.3; BMI 37.5
[2023-02-05 22:20] LABS: BASO % 1.2 % (0-2.0); HEMATOCRIT 45.7 % (32.4-45.2); HEMOGLOBIN 15.1 GM/dL (10.7-15.3); LYMPH % 34.8 % (8-40); MCH 29.8 pg (25.7-33.7); MEAN CELL VOLUME 90.2 fl (80-96); MEAN PLT VOLUME 8.7 fl (7.5-11.1); PLATELET COUNT 325 10^3/uL (134-434); RBC 5.07 M/mm3 (3.60-5.2); RDW 13.2 % (11.6-15.6); WHITE BLOOD COUNT 9.4 K/mm3 (4.0-10.0)
[2023-02-05] MEDS ORDERED: SODIUM CHLORIDE 0.9% 500 ML INFUS.BAG IV ONE (22:22)
[2023-02-05] MEDS ORDERED: morphine CARPU-JECT 4 MG/1 ML DISP.SYRIN IVPUSH ONE (22:22)
[2023-02-05] MEDS ORDERED: morphine SULFATE 4 MG/ML VIAL ONE (22:34)
[2023-02-05 22:56] LABS: URINE APPEARANCE CLEAR; URINE BILIRUBIN NEGATIVE (NEGATIVE); URINE COLOR YELLOW; URINE KETONE NEGATIVE (NEGATIVE)
[2023-02-05 22:57] LABS: URINE LEUK ESTERASE NEGATIVE (NEGATIVE); URINE NITRITE NEGATIVE (NEGATIVE); URINE PROTEIN NEGATIVE (NEGATIVE); URINE UROBILINOGEN 0.2 mg/dL (0.2-1.0)
[2023-02-05 22:58] LABS: POTASSIUM 4.3 mmol/L (3.5-5.1)
[2023-02-05 23:00] LABS: BLOOD UREA NITROGEN 7.3 mg/dL (7-18); CALCIUM 9.5 mg/dL (8.5-10.1)
[2023-02-05 23:01] LABS: ALBUMIN 3.9 g/dl (3.4-5.0)
[2023-02-05 23:04] LABS: CREATININE 0.8 mg/dL (0.55-1.3)
[2023-02-05 23:05] LABS: BILIRUBIN,TOTAL 1.6 mg/dL (0.2-1); TOT PROT 7.5 g/dl (6.4-8.2)
[2023-02-06] MEDS ORDERED: KETOROLAC TROMETHAMINE 15 MG/ML VIAL IVPUSH ONE (04:07)
[2023-02-06] MEDS ORDERED: KETOROLAC TROMETHAMINE 15 MG/ML VIAL ONE (04:29)
[2023-02-06 04:56] VITALS: RESP 18
[2023-02-06 06:28] VITALS: BP 123/67; PULSE 78
== END 2023-02-06 06:29 | disposition home or self-care (01) ==
LOC: JER 20:01
PROC: 3E033GC Introduction of Other Therapeutic Substance into Peripheral Vein, Percutaneous Approach (ICD-10-PCS; 2023-02-05)
PROC: 3E0333Z Introduction of Anti-inflammatory into Peripheral Vein, Percutaneous Approach (ICD-10-PCS; principal; 2023-02-06)
DX: R10.32 Left lower quadrant pain (principal); D25.9 Leiomyoma of uterus, unspecified; Z20.822 Contact with and (suspected) exposure to COVID-19
CPT/HCPCS: 0241U-QW; 36415; 74177-TC; 80053; 81003; 83605; 85025; 87077; 87086; 96374; 96375; 99285-25; Q9967